=== PATIENT | male | born 1950 | race Caucasian/White ===

== ENCOUNTER 2021-07-31 03:27 | Emergency (ER) | payer SELFPAY ==
[~2021-07-31] VITALS: Ht 154.9 cm; Wt 62.6 kg
[2021-07-31 03:46] VITALS: BP 132/78
--- NOTE | 2021-07-31 03:54 | NUR ---
PT TO LOBBY TO A/W EVALUATION
[2021-07-31] MEDS ORDERED: cephALEXin 500 MG CAP PO ONE (04:00)
[2021-07-31] MEDS ORDERED: CEPH-588 PO (04:03)
--- NOTE | 2021-07-31 04:40 | NUR ---
# 14 FR Jenkins catheter with 10 ml utilizing sterile technique. Immediate return of 400 ml CLOUDY YELLOW urine noted. Bedside drainage bag placed below level of bladder. Urine sample collected and sent to lab. Pt tolerated procedure WELL.
[2021-07-31 05:05] VITALS: BP 132/78
[2021-07-31 14:08] LABS: APPEARANCE,URINE SL CLOUDY (CLEAR); BILIRUBIN,URINE NEGATIVE (NEGATIVE); BLOOD, URINE 2+ (NEGATIVE); COLOR,URINE YELLOW (YELLOW); LEUKOCYTE ESTERASE ,URINE 2+ (NEGATIVE); NITRITE, URINE NEGATIVE (NEGATIVE); UGLUCOSE 3+ (NEGATIVE)
[2021-07-31 15:09] LABS: RBC,URINE 11-20 (MOD) /HPF (0-5); WBC,URINE 80-100 /HPF (0-5)
== END 2021-07-31 05:05 | disposition home or self-care (01) ==
LOC: MED 03:27
DX: N39.0 Urinary tract infection, site not specified (principal); R33.9 Retention of urine, unspecified
CPT/HCPCS: 51702; 81001; 87086; 99284